=== PATIENT | female | born 1985 | race Two or more races ===

== ENCOUNTER 2020-12-10 11:56 | Emergency (ER) | payer OTHER ==
[~2020-12-10] VITALS: Ht 154.9 cm; Wt 86.2 kg
[~2020-12-10 11:56] MED LIST: AMOX1TAB12 PO
== END 2020-12-10 16:01 | disposition home or self-care (01) ==
LOC: ER 11:56
DX: M75.52 Bursitis of left shoulder (principal)

== ENCOUNTER 2020-12-12 08:17 | Emergency (ER) | payer OTHER ==
[~2020-12-12] VITALS: Ht 154.9 cm; Wt 86.2 kg
== END 2020-12-12 12:55 | disposition home or self-care (01) ==
LOC: ER 08:17
DX: M25.512 Pain in left shoulder (principal); M54.2 Cervicalgia

== ENCOUNTER 2022-04-16 11:13 | Emergency (ER) | payer OTHER ==
[~2022-04-16] VITALS: Ht 152.4 cm; Wt 92.5 kg
[2022-04-16] MEDS ORDERED: OSEL75CA PO (15:18)
[2022-04-16] MEDS ORDERED: TYLOPHEN500 MG (15:22)
== END 2022-04-16 15:23 | disposition home or self-care (01) ==
LOC: ER 11:13
DX: J10.1 Influenza due to other identified influenza virus with other respiratory manifestations (principal); Z20.822 Contact with and (suspected) exposure to COVID-19

== ENCOUNTER 2022-07-24 11:11 | Emergency (ER) | payer OTHER ==
[~2022-07-24] VITALS: Ht 152.4 cm; Wt 88.5 kg
[~2022-07-24 11:11] MED LIST changes: +OSEL75CA PO; +TYLOPHEN500 MG
[2022-07-24] MEDS ORDERED: ALLERGY RELIEF10 M3 (11:19)
== END 2022-07-24 18:04 | disposition home or self-care (01) ==
LOC: ER 11:11
DX: R10.13 Epigastric pain (principal)